=== PATIENT | female | born 1995 | race Caucasian/White ===

== ENCOUNTER 2016-09-05 12:56 | Emergency (ER) | payer BC ==
[~2016-09-05] VITALS: Ht 154.9 cm; Wt 54.7 kg
[2016-09-05 13:03] VITALS: TEMP 36.9; Ht 154.9 cm; Wt 54.7 kg
[2016-09-05] MEDS ORDERED: SODIUM CHLORIDE 0.9% 1000ML 1,000 ML IV STA (13:48)
[2016-09-05] MEDS ORDERED: KETOROLAC TROMETHAMINE 30 MG/ML VIAL IV STA (13:48)
[2016-09-05] MEDS ORDERED: ONDANSETRON INJ 2 MG/ML 2 ML VIAL IV STA (13:48)
[2016-09-05] MEDS ORDERED: DIPH25CA65 PO (13:54)
[2016-09-05] MEDS ORDERED: BCPILLS PO (13:54)
[2016-09-05 13:55] LABS: BASO % 0.1 %; BASO ABS # 0.01 K/uL (0-0.2); COMPLETE YES; EOS % 0.7 %; HEMATOCRIT 39.3 % (37-47); IG% 0.1 %; LYMPH ABS # 1.33 K/uL (1.2-3.4); MEAN CELL VOLUME 92.5 fL (80-100); MEAN CORPUSCULAR HEMOGLOBIN 33.4 pg (25-34); MEAN CORPUSCULAR HGB CONC 36.1 g/dl (32-36); MEAN PLATELET VOLUME 10.9 fL (7.4-10.4); MONO % 3.7 %; NEUT % 80.4 %; PLATELET COUNT 270 K/uL (130-400); RED BLOOD COUNT 4.25 M/uL (4.2-5.4); WHITE BLOOD COUNT 8.85 K/uL (4.8-10.8)
[2016-09-05 14:12] LABS: BUN/CREATININE RATIO 8.6 (10-20); CALCIUM 9.3 mg/dl (8.5-10.1); CREATININE 0.94 mg/dl (0.60-1.20); POTASSIUM 3.5 mmol/L (3.5-5.1)
[2016-09-05 14:36] LABS: URINE APPEARANCE CLOUDY (CLEAR); URINE BILIRUBIN NEG (NEG); URINE COLOR DK YELLOW; URINE EPITHELIAL CELL AUTO >30 /lpf (0-5); URINE NITRITE NEG (NEG); URINE SPECIFIC GRAVITY 1.024 (1.000-1.030); UROBILINOGEN NEG (NEG); ZZUR CULT IF INDIC CLEAN CATCH NO
[2016-09-05 14:37] LABS: MANUAL MICROSCOPIC REQUIRED? NO; REVIEW REQ? NO
--- NOTE | 2016-09-05 15:01 | DIAGNOSTIC IMAGING REPORT ---
PELVIC ULTRASOUND CLINICAL HISTORY: Abdominal pain, nausea, vomiting and diarrhea. COMPARISON STUDY: CT of the abdomen and pelvis October 15, 2013. TECHNIQUE: Transabdominal and transvaginal sonography of the pelvis was performed. FINDINGS: The uterus measures 7.4 x 3.8 x 5.3 cm. The endometrium measures 3 mm in thickness. The right ovary is normal, measuring 3.2 x 2.2 x 2.1 cm. The left ovary measures 5.3 x 2.8 x 3.5 cm. There is a 3.4 cm left ovarian cyst which contains a smaller cyst suggestive of a cumulus oophorus. Color flow was identified within each ovary. There was no free fluid. IMPRESSION: 1. 3.4 cm cystic lesion with the left ovary which likely reflects a dominant follicle. 2. No sonographic evidence of ovarian torsion. 3. No free fluid. Electronically signed by: Ben Paulson M.D. 09/05/2016 3:00 PM Dictated Date/Time: 09/05/2016 2:56 PM
--- NOTE | 2016-09-05 15:16 | DIAGNOSTIC IMAGING REPORT ---
ABDOMEN 2VIEW W/PA CHEST RTN CLINICAL HISTORY: Generalized abdominal pain and nausea COMPARISON STUDY: No previous studies for comparison. FINDINGS: The erect chest reveals no evidence of free air. There is no evidence of focal pulmonary consolidation.] Erect and supine views of the abdomen reveal no abnormally dilated loops of large or small bowel. There are no transition zone to indicate bowel obstruction. There is a mild thoracolumbar levoscoliosis. IMPRESSION: No evidence of bowel obstruction. No evidence of free air. Electronically signed by: Juliocesar De M.D. 09/05/2016 3:14 PM Dictated Date/Time: 09/05/2016 3:14 PM
[2016-09-05 15:20] VITALS: BP 138/71; PULSE 88; O2SAT 100
[2016-09-05] MEDS ORDERED: OXYC1TAB3 PO (15:35)
--- NOTE | 2016-09-05 15:52 | EMERGENCY ROOM VISIT NOTE ---
History Report prepared by Yaneli: Usama Davenport Under the Supervision of: Dr. Tien Raines M.D. First contact with patient: 13:37 Chief Complaint: ABDOMINAL PAIN Stated Complaint: ABD PAIN Nursing Triage Summary: Pt reports 8/10 LLQ abdominal pain that began approx 8 am this morning. Pt reports she had a cyst rupture before and this feels similar to this. History of Present Illness The patient is a 21 year old female who presents to the Emergency Room with complaints of left lower quadrant abdominal pain starting about 6 hours ago. 2 days ago while sitting in class, the patient had a sudden onset of suprapubic abdominal pain. The pain resolved after an hour after she had a diarrheal bowel movement. She denies any other episodes of diarrhea. The patient then started having nausea. This morning, she had a sudden onset of left lower quadrant abdominal pain. She notes some pain radiation to the right lower side of the abdomen. She describes it to be a stabbing pain. She currently rates a pain intensity of 6/10. She denies urinary symptoms, abnormal vaginal discharge, or any other complaints. She denies any chance of . She had her menstrual period about 2 weeks ago. She reports her current symptoms are similar to her past ovarian cyst symptoms occurring a few years ago. She does not have a history of any other medical problems. She was referred to the Emergency Room today by [facility]. Source of History: patient Onset: about 6 hours ago Position: abdomen (LLQ) Symptom Intensity: 6/10 Quality: stabbing Associated Symptoms: No urinary symptoms Review of Systems See HPI for pertinent positives & negatives. A total of 10 systems reviewed and were otherwise negative. Past Medical & Surgical Medical Problems: (1) Ovarian cyst Family History Diabetes mellitus Social History Smoking Status: Never Smoker Alcohol Use: none Drug Use: none Marital Status: single Occupation Status: student Current/Historical Medications Scheduled Control Pills ( Control Pills), 1 TAB PO DAILY Diphenhydramine Hcl (Benadryl Allergy), 1 CAP PO DIRECTED Scheduled PRN Oxycodone Ir (Roxicodone Ir), 1 TAB PO Q4H PRN for Pain Allergies Coded Allergies: No Known Allergies (Unverified , 09/05/16) Physical Exam Vital Signs Date Time Temp Pulse Resp B/P Pulse Ox O2 Delivery O2 Flow Rate FiO2 09/05/16 15:20 88 16 138/71 100 Room Air 2/22/17 13:03 36.9 98 18 148/78 99 Room Air Physical Exam GENERAL: Patient is in no acute distress. HEENT: No acute trauma, normocephalic atraumatic, mucous membranes moist, no nasal congestion, no scleral icterus. NECK: No stridor, no adenopathy, no meningismus, trachea is midline. LUNGS: Clear to auscultation bilaterally, no wheeze, no rhonchi, breath sounds equal. HEART: Without murmurs gallops or rubs, regular rate and rhythm. ABDOMEN: Soft, slightly tender in the left lower quadrant and left pelvis, bowel sounds positive, no hernias, no peritonitis. EXTREMITIES: No cyanosis or edema, full range of motion of all the joints without pain or difficulty, no signs for acute trauma. NEUROLOGIC: Oriented x 3, no acute motor or sensory deficits, no focal weakness. SKIN: No rash, no jaundice, no diaphoresis. Medical Decision & Procedures ER Provider Diagnostic Interpretation: X ray results and stated below per my interpretation and radiologist interpretation. US results and stated below per my review and radiologist interpretation: ABDOMEN 2VIEW W/PA CHEST RTN CLINICAL HISTORY: Generalized abdominal pain and nausea COMPARISON STUDY: No previous studies for comparison. FINDINGS: The erect chest reveals no evidence of free air. There is no evidence of focal pulmonary consolidation.] Erect and supine views of the abdomen reveal no abnormally dilated loops of large or small bowel. There are no transition zone to indicate bowel obstruction. There is a mild thoracolumbar levoscoliosis. IMPRESSION: No evidence of bowel obstruction. No evidence of free air. Electronically signed by: Juliocesar De M.D. 09/05/2016 3:14 PM Dictated Date/Time: 09/05/2016 3:14 PM PELVIC ULTRASOUND CLINICAL HISTORY: Abdominal pain, nausea, vomiting and diarrhea. COMPARISON STUDY: CT of the abdomen and pelvis October 15, 2013. TECHNIQUE: Transabdominal and transvaginal sonography of the pelvis was performed. FINDINGS: The uterus measures 7.4 x 3.8 x 5.3 cm. The endometrium measures 3 mm in thickness. The right ovary is normal, measuring 3.2 x 2.2 x 2.1 cm. The left ovary measures 5.3 x 2.8 x 3.5 cm. There is a 3.4 cm left ovarian cyst which contains a smaller cyst suggestive of a cumulus oophorus. Color flow was identified within each ovary. There was no free fluid. IMPRESSION: 1. 3.4 cm cystic lesion with the left ovary which likely reflects a dominant follicle. 2. No sonographic evidence of ovarian torsion. 3. No free fluid. Electronically signed by: Ben Paulson M.D. 09/05/2016 3:00 PM Dictated Date/Time: 09/05/2016 2:56 PM Laboratory Results 09/05/16 13:35 Red Blood Count 4.25, Mean Corpuscular Volume 92.5, Mean Corpuscular Hemoglobin 33.4, Mean Corpuscular Hemoglobin Concent 36.1, Mean Platelet Volume 10.9, Neutrophils (%) (Auto) 80.4, Lymphocytes (%) (Auto) 15.0, Monocytes (%) (Auto) 3.7, Eosinophils (%) (Auto) 0.7, Basophils (%) (Auto) 0.1, Neutrophils # (Auto) 7.11, Lymphocytes # (Auto) 1.33, Monocytes # (Auto) 0.33, Eosinophils # (Auto) 0.06, Basophils # (Auto) 0.01 09/05/16 13:35 Test 09/05/16 00:00 09/05/16 13:35 Urine Color DK YELLOW Urine Appearance CLOUDY (CLEAR) Urine pH 5.0 (4.5-7.5) Urine Specific [place] 1.024 (1.000-1.030) Urine Protein NEG (NEG) Urine Glucose (UA) NEG (NEG) Urine Ketones TRACE (NEG) Urine Occult Blood NEG (NEG) Urine Nitrite NEG (NEG) Urine Bilirubin NEG (NEG) Urine Urobilinogen NEG (NEG) Urine Leukocyte Esterase SMALL (NEG) Urine WBC (Auto) 1-5 /hpf (0-5) Urine RBC (Auto) 0-4 /hpf (0-4) Urine Hyaline Casts (Auto) 1-5 /lpf (0-5) Urine Epithelial Cells (Auto) >30 /lpf (0-5) Urine Bacteria (Auto) NEG (NEG) Urine Test NEG (NEG) White Blood Count 8.85 K/uL (4.8-10.8) Red Blood Count 4.25 M/uL (4.2-5.4) Hemoglobin 14.2 g/dL (12.0-16.0) Hematocrit 39.3 % (37-47) Mean Corpuscular Volume 92.5 fL (80-100) Mean Corpuscular Hemoglobin 33.4 pg (25-34) Mean Corpuscular Hemoglobin Concent 36.1 g/dl (32-36) Platelet Count 270 K/uL (130-400) Mean Platelet Volume 10.9 fL (7.4-10.4) Neutrophils (%) (Auto) 80.4 % Lymphocytes (%) (Auto) 15.0 % Monocytes (%) (Auto) 3.7 % Eosinophils (%) (Auto) 0.7 % Basophils (%) (Auto) 0.1 % Neutrophils # (Auto) 7.11 K/uL (1.4-6.5) Lymphocytes # (Auto) 1.33 K/uL (1.2-3.4) Monocytes # (Auto) 0.33 K/uL (0.11-0.59) Eosinophils # (Auto) 0.06 K/uL (0-0.5) Basophils # (Auto) 0.01 K/uL (0-0.2) RDW Standard Deviation 42.2 fL (36.4-46.3) RDW Coefficient of Variation 12.5 % (11.5-14.5) Immature Granulocyte % (Auto) 0.1 % Immature Granulocyte # (Auto) 0.01 K/uL (0.00-0.02) Anion Gap 12.0 mmol/L (3-11) Est Creatinine Clear Calc Drug Dose 70.8 ml/min Estimated GFR () 99.8 Estimated GFR (Non- 86.1 BUN/Creatinine Ratio 8.6 (10-20) Calcium Level 9.3 mg/dl (8.5-10.1) Total Bilirubin 0.4 mg/dl (0.2-1) Aspartate Amino Transf (AST/SGOT) 18 U/L (15-37) Alanine Aminotransferase (ALT/SGPT) 22 U/L (12-78) Alkaline Phosphatase 60 U/L (45-117) Total Protein 8.8 gm/dl (6.4-8.2) Albumin 4.5 gm/dl (3.4-5.0) Globulin 4.3 gm/dl (2.5-4.0) Albumin/Globulin Ratio 1.0 (0.9-2) Lipase 130 U/L (73-393) Laboratory results reviewed by me. Medications Administered Medications (Trade) Dose Ordered Sig/Malinda Route Start Time Stop Time Status Last Admin Dose Admin Ondansetron HCl 4 mg 4 mg NOW STAT IV 09/05/16 13:48 09/05/16 13:50 DC 09/05/16 14:02 4 MG Sodium Chloride (Nss 1000ml) 1,000 ml @ 200 mls/hr Q5H STAT IV 09/05/16 13:48 09/05/16 16:10 DC 09/05/16 14:03 200 MLS/HR Ketorolac Tromethamine (Toradol Inj) 30 mg NOW STAT IV 09/05/16 13:48 09/05/16 13:51 DC 09/05/16 14:03 30 MG ED Course 1337: The patient was evaluated in room A03. A complete history and physical exam was performed. 1348: Toradol Inj 30 mg IV, Sodium Chloride 1000 ml @ 200 mls/hr IV, Zofran Inj 4 mg IV 1523: Reevaluated the patient. Discussed results and discharge instructions: She verbalized understanding and agreement. She will follow up with [facility]. The patient is ready for discharge. Medical Decision Differential diagnosis includes but is not limited to ovarian cyst, ovarian torsion, UTI, renal colic, intensional colic, colitis, diverticulitis, hernia, . There is no leukocytosis or concerning anemia. No significant electrolyte abnormality, kidney failure, hepatitis or pancreatitis. Urinalysis does not show infection or significant hematuria. testing is negative. Obstruction series shows no pneumonia, free air or bowel obstruction. Pelvis ultrasound shows a left-sided ovarian cyst, no evidence for ovarian torsion. The patient received IV saline, IV Toradol and IV Zofran, she looks comfortable. The patient complains of left lower quadrant abdominal and pelvis discomfort. This is likely from her left ovarian cyst. She has felt similar pain with previous ovarian cysts. The patient is being discharged on Motrin, a few oxycodone for severe pain. She will follow with OB as an outpatient. If things are worsening, she should return for reassessment. [place] Drug Monitoring Program Search Results: patient reviewed within database, no issues identified Impression Primary Impression: Ovarian cyst Additional Impression: Left lower quadrant pain Scribe Attestation The scribe's documentation has been prepared under my direction and personally reviewed by me in its entirety. I confirm that the note above accurately reflects all work, treatment, procedures, and medical decision making performed by me. Departure Information Dispostion Home / Self-Care Prescriptions Oxycodone Ir (Roxicodone Ir) 5 Mg Tab 1 TAB PO Q4H Y for Pain, #8 TAB Prov: Tien Raines M.D. 09/05/16 Referrals Vickei Moncada C.R.N.P (PCP) Forms HOME CARE DOCUMENTATION FORM, IMPORTANT VISIT INFORMATION Patient Instructions My [facility] Additional Instructions motrin 600 mg every 6 hours for pain may also use tylenol heat may help the pain oxy ir 1 tab every 4 hours for severe pain call ob and set up appt--call tomorrow return for worsening pain, fever, vomiting Problem Qualifiers
== END 2016-09-05 15:41 | disposition home or self-care (01) ==
LOC: C.EDB 12:57 → C.EDA 15:41
DX: N83.202 Unspecified ovarian cyst, left side (principal); R10.31 Right lower quadrant pain; R19.7 Diarrhea, unspecified; Z83.3 Family history of diabetes mellitus